=== PATIENT | male | born 1960 | race Two or more races ===

== ENCOUNTER 2022-09-26 15:42 | Emergency (ER) | payer MEDICAID ==
[~2022-09-26] VITALS: Ht 175.3 cm; Wt 100.0 kg
[2022-09-26 16:00] VITALS: TEMP 97.6
[2022-09-26] MEDS ORDERED: LEVO88TA4 PO (16:00)
[2022-09-26] MEDS ORDERED: METF-1211 PO ×2 (16:00→20:40)
[2022-09-26] MEDS ORDERED: ATOR40TA28 PO (16:00)
[2022-09-26 16:26] LABS: GLUCOMETER DEV NAME(LOC) ERT.5
[2022-09-26 16:52] LABS: COVID AG,FIA SOURCE NASOPHARYNGEAL
[2022-09-26 17:12] LABS: BASOPHILS % (AUTO) 0.4 % (0.0-2.0); EOSINOPHILS % (AUTO) 0.5 % (1.0-6.0); HEMATOCRIT 44.7 % (41-53); HEMOGLOBIN 15.2 g/dL (13.5-17.5); LYMPHOCYTES # (AUTO) 1.4 K/uL (1.0-4.8); LYMPHOCYTES % (AUTO) 17.1 % (22.0-44.0); MEAN CORPUSCULAR HEMOGLOBIN 31.5 pg (26.0-34.0); MEAN CORPUSCULAR VOLUME 93 fL (80-100); MONOCYTES # (AUTO) 0.7 K/uL (0.1-1.0); MONOCYTES % (AUTO) 8.8 % (2.0-9.0); NEUTROPHILS # (AUTO) 6.1 K/uL (1.8-7.7); NEUTROPHILS % (AUTO) 73.2 % (40.0-70.0); PLATELET COUNT (AUTO) 272 K/uL (150-450); RED BLOOD CELL COUNT(AUTO) 4.83 MIL/uL (4.50-5.90); RED CELL DISTRIBUTION WIDTH 13.5 % (11.5-14.5)
[2022-09-26 17:23] LABS: INFLUENZA TYPE A NEGATIVE FOR TYPE A (NEGATIVE); INFLUENZA TYPE B NEGATIVE FOR TYPE B (NEGATIVE)
[2022-09-26 17:28] LABS: ALBUMIN 3.4 g/dL (3.4-5.0); BILIRUBIN,TOTAL 0.3 mg/dL (0.1-1.0); CALCIUM, TOTAL 9.3 mg/dL (8.8-10.5); CREATININE 1.32 mg/dL (0.60-1.30); POTASSIUM 4.2 mmol/L (3.5-5.1); TOTAL PROTEIN, SERUM 7.6 g/dL (6.4-8.2)
[2022-09-26] MEDS ORDERED: GuaiFENesin/D-METHORPHAN [SUGAR-FREE] 200-20MG/10 ML SYRUP UDCUP PO ONE (18:45)
[2022-09-26] MEDS ORDERED: ACETAMINOPHEN 500 MG TABLET PO ONE (18:45)
[2022-09-26] MEDS ORDERED: INSULIN REGULAR, HUMAN 100 UNITS/ML IVP ONE (18:45)
[2022-09-26] MEDS ORDERED: KETOROLAC TROMETHAMINE 30 MG/ML VIAL IVP ONE (18:45)
[2022-09-26] MEDS ORDERED: SODIUM CHLORIDE 0.9% 2,000 ML IV ONE (18:45)
[2022-09-26 20:26] VITALS: BP 103/81; PULSE 98; RESP 17
[2022-09-26 20:31] LABS: GLUCOMETER DEV NAME(LOC) ER.6
[2022-09-26] MEDS ORDERED: GUAIFDM PO (20:40)
[2022-09-26] MEDS ORDERED: ACET-66 PO (20:40)
== END 2022-09-26 20:55 | disposition home or self-care (01) ==
LOC: EMS 15:44
DX: J20.9 Acute bronchitis, unspecified (principal); J06.9 Acute upper respiratory infection, unspecified; E11.65 Type 2 diabetes mellitus with hyperglycemia; E78.00 Pure hypercholesterolemia, unspecified; I10 Essential (primary) hypertension; E03.9 Hypothyroidism, unspecified; Z20.822 Contact with and (suspected) exposure to COVID-19; Z91.148 Patient's other noncompliance with medication regimen for other reason
CPT/HCPCS: 99285; 96374; 71045; 96361; 96375; 87426; 80053; 82962; 83880; 84484; 85025; 87804; 36415; 93005; J1885; J7030; J1815

== ENCOUNTER 2022-10-23 13:29 | Emergency (ER) | payer MEDICAID ==
[~2022-10-23] VITALS: Ht 172.7 cm; Wt 109.1 kg
[~2022-10-23 13:29] MED LIST: ACET-66 PO; ATOR40TA28 PO; GUAIFDM PO; LEVO88TA4 PO; METF-1211 PO
[2022-10-23] MEDS ORDERED: METF-446 PO (13:45)
[2022-10-23] MEDS ORDERED: ATOR40TA71 PO (13:45)
[2022-10-23] MEDS ORDERED: LEVO150T11 PO (13:45)
[2022-10-23 13:46] VITALS: BP 133/65; PULSE 115; RESP 16; TEMP 97.7
== END 2022-10-23 17:36 | disposition left against medical advice (07) ==
LOC: EMS 13:29
DX: L02.212 Cutaneous abscess of back [any part, except buttock and flank] (principal); E11.9 Type 2 diabetes mellitus without complications; E78.00 Pure hypercholesterolemia, unspecified; I10 Essential (primary) hypertension; E03.9 Hypothyroidism, unspecified
CPT/HCPCS: 82962; 99282